=== PATIENT | female | born 1950 | race Caucasian/White ===

== ENCOUNTER 2024-08-11 08:00 | Outpatient (CLI) | payer MEDICARE, BC | END 2024-08-11 23:59 | disposition home or self-care (01) | LOC: MRI 08:00 | PROVIDERS: ATTEND Podiatrist Foot & Ankle Surgery | DX: M19.071 Primary osteoarthritis, right ankle and foot (principal); M25.474 Effusion, right foot; M94.271 Chondromalacia, right ankle and joints of right foot; M79.671 Pain in right foot | CPT/HCPCS: 73718 ==